=== PATIENT | male | born 1935 | race Caucasian/White ===

== ENCOUNTER 2019-07-27 12:50 | Inpatient (IN) ==
[2019-07-27] MEDS ORDERED: Ringers Solution, Lactated 1,000 ML IVC SCH ×2 (13:15→19:40)
[2019-07-27] MEDS ORDERED: *HR* FentaNYL (PF) 100 MCG/2 ML VIAL ONE ×2 (14:40→18:05)
[2019-07-27] MEDS ORDERED: Ondansetron 4 MG/2 ML VIAL ONE (14:40)
[2019-07-27] MEDS ORDERED: Lidocaine -MPF 2% 2 ML VIAL ONE (14:40)
[2019-07-27] MEDS ORDERED: *HR* Succinylcholine 200 MG/10 ML VIAL IVP ONE (14:40)
[2019-07-27] MEDS ORDERED: *HR* Propofol 200 MG/20 ML VIAL IVP ONE (14:40)
[2019-07-27] MEDS ORDERED: *HR* HYDROmorphone PF 0.5 MG/0.5 ML SYRINGE IVP PRN (14:52)
[2019-07-27] MEDS ORDERED: *HR* OxyCODONE Immed Rel 5 MG TABLET PO PRN ×2 (14:52→19:40)
[2019-07-27] MEDS ORDERED: Ondansetron 4 MG/2 ML VIAL IVP ONE (14:52)
[2019-07-27] MEDS ORDERED: Lidocaine -MPF 4% 5 ML AMPUL ONE (14:55)
[2019-07-27] MEDS ORDERED: Haloperidol Lactate 5 MG/ML VIAL ONE ×2 (15:03→18:52)
[2019-07-27] MEDS ORDERED: ROPIVACAINE/PF/NS 0.25% 1 EACH SYRINGE INTRAART ONE (15:15)
[2019-07-27] MEDS ORDERED: Ropivacaine/PF 0.5% 30 ML VIAL ONE (15:15)
[2019-07-27] MEDS ORDERED: Ethanol\\Acetic Acid\\Na Ace\\Ben 1,000 ML IRRIG.SOLN IR ONE ×2 (16:04→16:19)
[2019-07-27] MEDS ORDERED: *HR* Midazolam HCl 2 MG/2 ML VIAL ONE (16:13)
[2019-07-27] MEDS ORDERED: Dexamethasone 4 MG/ML VIAL ONE (16:54)
[2019-07-27] MEDS ORDERED: EPHEDrine 50 MG/ML VIAL ONE (17:02)
[2019-07-27] MEDS ORDERED: *HR* Enoxaparin 30 MG/0.3 ML SYRINGE SQ SCH (18:00)
[2019-07-27] MEDS ORDERED: Haloperidol Lactate 5 MG/ML VIAL IVP PRN ×2 (18:58→19:40)
[2019-07-27 19:29] LABS: Hemoglobin 13.9 g/dL (12.9-16.9)
[2019-07-27] MEDS ORDERED: Naloxone 0.4 MG/ML INJ IVP PRN (19:40)
[2019-07-27] MEDS ORDERED: MOM Conc 10 ML UD.LIQ PO PRN (19:40)
[2019-07-27] MEDS ORDERED: *HR* OxyCODONE/APAP 5/325 TABLET PO PRN (19:40)
[2019-07-27] MEDS ORDERED: Ondansetron 4 MG/2 ML VIAL IVP PRN (19:40)
[2019-07-27] MEDS ORDERED: Sennosides 8.6 MG TABLET PO PRN (19:40)
[2019-07-27] MEDS: ceFAZolin 2,000 MG in 0.9 % Sodium Chloride 100 ML IVPB SCH (21:45)
[2019-07-27 23:42] LABS: BUN/Creatinine Ratio 23 (6-26); Blood Urea Nitrogen 17 mg/dL (8-23); Calcium 8.8 mg/dL (8.6-10.3); Carbon Dioxide 22 mEq/L (23-29); Chloride 103 mEq/L (98-107); Glucose 134 mg/dL (70-105); Osmolality,Calculated 282 (280-300); Potassium 4.1 mEq/L (3.5-5.1); Sodium 134 mEq/L (136-145); eGFR For African Americans > 60 (> 60); eGFR For Non-African Americans > 60 (> 60)
[2019-07-28 02:56] LABS: Hematocrit 38.2 % (37.5-50.1)
[2019-07-28 02:59] LABS: Hemoglobin 12.2 g/dL (12.9-16.9)
[2019-07-28 03:04] LABS: Calcium 7.2 mg/dL (8.6-10.3); Potassium 3.4 mEq/L (3.5-5.1)
[2019-07-28] MEDS: ceFAZolin 2,000 MG in 0.9 % Sodium Chloride 100 ML IVPB SCH (05:53)
[2019-07-28] MEDS ORDERED: *HR* Enoxaparin 30 MG/0.3 ML SYRINGE SQ SCH (06:00)
[2019-07-28] MEDS ORDERED: 0.9 % Sodium Chloride 1,000 ML IV ONE (09:08)
[2019-07-28 12:00] VITALS: BP 130/77
[2019-07-28 13:48] LABS: BUN/Creatinine Ratio 23 (6-26); Blood Urea Nitrogen 19 mg/dL (8-23); Calcium 8.8 mg/dL (8.6-10.3); Carbon Dioxide 26 mEq/L (23-29); Chloride 104 mEq/L (98-107); Glucose 132 mg/dL (70-105); Osmolality,Calculated 288 (280-300); Sodium 137 mEq/L (136-145); eGFR For African Americans > 60 (> 60); eGFR For Non-African Americans > 60 (> 60)
== END 2019-07-28 15:10 | disposition home or self-care (01) | DRG 483 ==
LOC: SAMDAY 12:50 → 3NENU 13:37
PROVIDERS: ADMIT Orthopaedic Surgery; ATTEND Orthopaedic Surgery